=== PATIENT | female | born 1945 | race Caucasian/White ===

== ENCOUNTER 2018-11-18 13:57 | Emergency (ER) | payer MEDICARE ==
--- NOTE | 2018-11-18 14:38 | ER ---
Nurse's Notes [facility] Name: Juan Miguel Bernard Age: 73 yrs Sex: Female : 1945 Arrival Date: 11/18/2018 Time: 14:02 Bed 13 Private MD: Diagnosis: Encounter for evaluation of wound/suture repaired laceration Presentation: 11/18 14:03 Presenting complaint: Patient states: i had this stitches on my R lower leg area for 6 hj days and looks like its infected; denies fever and chills; pt is taking clindamycin PO;. Transition of care: patient was not received from another setting of care. Onset of symptoms was November 18, 2018. Risk Assessment: Do you want to hurt yourself or someone else? Patient reports no desire to harm self or others. Initial Sepsis Screen: Does the patient meet any 2 criteria? No. Patient's initial sepsis screen is negative. Does the patient have a suspected source of infection? No. Patient's initial sepsis screen is negative. Care prior to arrival: None. 14:03 Method Of Arrival: Ambulatory 14:03 Acuity: SINDY 4 hj Historical: - Allergies: 14:06 Levaquin; hj 14:06 Cipro; hj 14:06 Keflex; hj - PMHx: 14:06 Hypertension; COPD; hj - PSHx: 14:06 Cholecystectomy; Hysterectomy; hj - Immunization history:: Adult Immunizations up to date. - Social history:: Smoking status: Patient/guardian denies using tobacco. Screenin:43 Abuse screen: Denies threats or abuse. Denies injuries from another. Nutritional aj screening: No deficits noted. Tuberculosis screening: No symptoms or risk factors identified. Fall Risk None identified. Assessment: 14:43 General: Appears in no apparent distress. comfortable, Behavior is calm, cooperative, aj appropriate for age. Pain: Complains of pain in right johnson. Neuro: Level of Consciousness is awake, alert, obeys commands, Oriented to person, place, time, situation, Appropriate for age. Respiratory: Airway is patent Respiratory effort is even, unlabored, Respiratory pattern is regular, symmetrical. Derm: Skin is intact, is healthy with good turgor, Skin is pink, warm \T\ dry. normal, Wound noted right johnson Other: Well approximated with small amount of serosanguinous drainage. Vital Signs: 14:06 BP 162 / 73; Pulse 88; Resp 20; Temp 98.6(TE); Pulse Ox 95% on R/A; Weight 95.25 kg; hj Height 5 ft. 7 in. (170.18 cm); Pain 4/10; 14:06 Body Mass Index 32.89 (95.25 kg, 170.18 cm) ED Course: 14:02 Patient arrived in ED. as 14:05 Triage completed. hj 14:06 Arm band placed on right wrist. hj 14:09 Milla Del Real F[facility]-C [facility]. kb 14:09 Duane Blanton MD is Attending Physician. kb 14:29 Janet Us, RN is Primary Nurse. aj 14:43 Patient has correct armband on for positive identification. aj 14:43 No provider procedures requiring assistance completed. Patient did not have IV access aj during this emergency room visit. Administered Medications: No medications were administered Outcome: 14:37 Discharge ordered by MD. kb 14:43 Discharged to home ambulatory, with family. aj 14:43 Condition: good 14:43 Discharge instructions given to patient, Instructed on discharge instructions, follow up and referral plans. medication usage, Demonstrated understanding of instructions, follow-up care, medications, Prescriptions given X 1. 14:45 Patient left the ED. aj Signatures: Milla Del Real FNP-C FNP-Janet Marcus, RN RN Kirsty King Henry, RN RN hj Corrections: (The following items were deleted from the chart) 14:08 14:06 Pulse 88bpm; Resp 20bpm; Pulse Ox 95% RA; Temp 98.6F Temporal; 95.25 kg; Height 5 hj ft. 7 in.; BMI: 32.8; Pain 4/10; hj 14:10 14:03 Acuity: SINDY 4 hj hj 14:45 14:03 Acuity: SINDY 3 hj hj
--- NOTE | 2018-11-18 14:38 | EDPHYS ---
Physician Documentation [facility] Name: Juan Miguel Bernard Age: 73 yrs Sex: Female : 1945 Arrival Date: 11/18/2018 Time: 14:02 Bed 13 Private MD: ED Physician Duane Blanton HPI: 11/18 15:11 This 73 yrs old Female presents to ER via Ambulatory with complaints of kb Incision Problem. 15:11 Patient presents to ED for recheck of: laceration. The affected area is on the lateral kb aspect of right calf. Previous treatment: The patient was initially treated 6 day(s) ago, the care was rendered at [facility], Treatment type: The patient's original treatment included sutures, Outpatient prescription(s): The patient was given prescription(s) for clindamycin. Progress: The patient reports no change in pain, redness, swelling. The patient has not experienced similar symptoms in the past. The patient has been recently seen by a physician: the patient's primary care provider, earlier today, with similar presenting complaints, and was sent to the [facility] Emergency Department for further evaluation. Pt reports she went to her PCP and saw his PA. States she told her she needed to see a surgeon right away. "she tried to get me into one and no one was available so she told me to come here. They said I would be transferred to [place] if I went to [facility] because they didn't have a surgeon available today." Pt states the wound has been about the same since the injury occurred, no increase in symptoms. Pt reports her initial injury occurred 6 days ago when she slipped off of a pontoon boat and cut her leg on the stairs. Had 10 internal and 46 external sutures inserted at [facility] in [place]. . Historical: - Allergies: 14:06 Levaquin; hj 14:06 Cipro; hj 14:06 Keflex; hj - PMHx: 14:06 Hypertension; COPD; hj - PSHx: 14:06 Cholecystectomy; Hysterectomy; hj - Immunization history:: Adult Immunizations up to date. - Social history:: Smoking status: Patient/guardian denies using tobacco. ROS: 15:10 Constitutional: Negative for fever, chills, and weight loss, Cardiovascular: Negative kb for chest pain, palpitations, and edema, Respiratory: Negative for shortness of breath, cough, wheezing, and pleuritic chest pain, Abdomen/GI: Negative for abdominal pain, nausea, vomiting, diarrhea, and constipation, MS/Extremity: Negative for injury and deformity, Neuro: Negative for headache, weakness, numbness, tingling, and seizure. 15:10 Skin: Positive for of the lateral aspect of right calf, sutured laceration. Exam: 15:09 Constitutional: This is a well developed, well nourished patient who is awake, alert, kb and in no acute distress. Head/Face: Normocephalic, atraumatic. Chest/axilla: Normal chest wall appearance and motion. Nontender with no deformity. No lesions are appreciated. Cardiovascular: Regular rate and rhythm with a normal S1 and S2. No gallops, murmurs, or rubs. Normal PMI, no JVD. No pulse deficits. Respiratory: Lungs have equal breath sounds bilaterally, clear to auscultation and percussion. No rales, rhonchi or wheezes noted. No increased work of breathing, no retractions or nasal flaring. Abdomen/GI: Soft, non-tender, with normal bowel sounds. No distension or tympany. No guarding or rebound. No evidence of tenderness throughout. MS/ Extremity: Pulses equal, no cyanosis. Neurovascular intact. Full, normal range of motion. Neuro: Awake and alert, GCS 15, oriented to person, place, time, and situation. Cranial nerves II-XII grossly intact. Motor strength 5/5 in all extremities. Sensory grossly intact. Cerebellar exam normal. Normal gait. 15:09 Skin: Wound recheck: Suture laceration closure: the edges are well approximated, mild erythema, moderate swelling, pt reports this is unchanged since injury occurred. Vital Signs: 14:06 BP 162 / 73; Pulse 88; Resp 20; Temp 98.6(TE); Pulse Ox 95% on R/A; Weight 95.25 kg; hj Height 5 ft. 7 in. (170.18 cm); Pain 4/10; 14:06 Body Mass Index 32.89 (95.25 kg, 170.18 cm) MDM: 14:09 Patient medically screened. kb 14:34 Data reviewed: vital signs, nurses notes. Data interpreted: Pulse oximetry: on room air kb is 95 %. Interpretation: normal. Counseling: I had a detailed discussion with the patient and/or guardian regarding: the historical points, exam findings, and any diagnostic results supporting the discharge/admit diagnosis, the need for outpatient follow up, a family practitioner, a general surgeon, to return to the emergency department if symptoms worsen or persist or if there are any questions or concerns that arise at home. ED course: Dr Blanton evaluated wound as well. Pt denies increase in pain, swelling, redness, fever. States it has been able the same as when it first happened. States she was on it a lot yesterday so it was more sore last night, but not now. Educated to return for increased redness, pain, swelling, if there is drainage or she runs fever. Verbal understanding received. . Administered Medications: No medications were administered Disposition: 11/19 06:43 Co-signature as Attending Physician, Duane Blanton MD I agree with the assessment and kdr plan of care. Disposition: 11/18/18 14:37 Discharged to Home. Impression: Encounter for evaluation of wound/suture repaired laceration. - Condition is Stable. - Discharge Instructions: Laceration Care, Adult, [id number]. - Prescriptions for Bactrim DS 800- 160 mg Oral Tablet - take 1 tablet by ORAL route every 12 hours for 10 days; 20 tablet. - Medication Reconciliation Form, Thank You Letter, Antibiotic Education, Prescription Opioid Use form. - Follow up: Emergency Department; When: As needed; Reason: Worsening of condition. Follow up: Private Physician; When: 2 - 3 days; Reason: Recheck today's complaints, Continuance of care, Re-evaluation by your physician. Signatures: Milla Del Real, DAMASO-C DAMASO-Janet Marcus RN RN aj Rittger, Kevin, MD MD [facility] Jerod Newton RN RN Corrections: (The following items were deleted from the chart) 11/18 14:45 14:37 11/18/2018 14:37 Discharged to Home. Impression: Encounter for evaluation of aj wound/suture repaired laceration. Condition is Stable. Forms are Medication Reconciliation Form, Thank You Letter, Antibiotic Education, Prescription Opioid Use. Follow up: Emergency Department; When: As needed; Reason: Worsening of condition. Follow up: Private Physician; When: 2 - 3 days; Reason: Recheck today's complaints, Continuance of care, Re-evaluation by your physician. kb
== END 2018-11-18 14:45 | disposition home or self-care (01) ==
LOC: ER 13:57
DX: S81.811D Laceration without foreign body, right lower leg, subsequent encounter (principal); I10 Essential (primary) hypertension; J44.9 Chronic obstructive pulmonary disease, unspecified; Z88.1 Allergy status to other antibiotic agents
CPT/HCPCS: 99282